=== PATIENT | female | born 1970 | race Caucasian/White ===

== ENCOUNTER → 2024-06-03 09:01 | Outpatient (CLI) | payer OTHER, MEDICAID, SELFPAY ==
--- NOTE | 2024-06-03 09:05 | DI.US.S_ITS ---
PROCEDURE: US THYROID INDICATIONS: THYROID NODULE TECHNIQUE: Real-time scanning was performed of the thyroid gland, with image documentation. COMPARISON: Outside Facility, US, US THYROID, 03/27/2023, 15:38. FINDINGS: Thyroid: Right lobe measures 5.5 x 1.6 x 2.2 cm. Left lobe measures 5.3 x 1.5 x 2.3 cm. Isthmus is 0.6 cm thick. Echotexture is heterogeneous. Nodule number: 1 Location: Right inferior Size: 1.1 x 0.9 x 0.7 cm compared to 1.1 x 0.8 x 0.7 cm. Composition: Solid Echogenicity: Hyperechoic Shape: wider than tall. Margins: Smooth Echogenic foci: None Total points: 3 ACR TI-RADS category: 3 Additional nodules are identified not meeting criteria for follow-up. IMPRESSION: Right lower lobe nodule now considered category 3 versus category 4 on prior exam due to appearance of increased echogenicity on current exam. Currently does not meet size criteria for follow-up. ACR TI-RADS definitions and recommendations: TI-RADS 1 (benign): 0 points. FNA not needed. TI-RADS 2 (not suspicious): 2 points. FNA not needed. TI-RADS 3: 3 points. * FNA if 2.5 cm or larger, follow up if 1.5 cm or larger (at 1, 3, and 5 years). TI-RADS 4: 4-6 points. * FNA if 1.5 cm or larger, follow up if 1 cm or larger (at 1, 2, 3, and 5 years). TI-RADS 5: 7 points or more. * FNA if 1 cm or larger, follow up if 0.5 cm or larger (every year for 5 years). Dictated by: Gabriela Valdez M.D. on 06/09/2024 at 9:58 Approved by: Gabriela Valdez M.D. on 06/09/2024 at 10:02
== END ==
PROVIDERS: PCP Family Medicine; Referring Provider Internal Medicine Endocrinology, Diabetes & Metabolism; Visit Provider Internal Medicine Endocrinology, Diabetes & Metabolism
DX: E04.1 Nontoxic single thyroid nodule (principal)
CPT/HCPCS: 76536

== ENCOUNTER → 2024-09-02 11:24 | Outpatient (CLI) | payer OTHER, SELFPAY ==
--- NOTE | 2024-09-02 11:31 | DI.RAD.S_ITS ---
PROCEDURE: XR HIP W PEL IF DONE RT 2V INDICATIONS: HIP PAIN. TECHNIQUE: AP pelvis with lateral view(s) of the right hip(s). COMPARISON: None. FINDINGS: Bones: No fractures or dislocations. Pelvic ring appears intact. No suspicious bony lesions. Soft tissues: The visualized bowel gas pattern is normal. No suspicious soft tissue calcifications. IMPRESSION: No acute bony abnormality. Dictated by: Bashir Candelaria M.D. on 09/02/2024 at 12:16 Approved by: Bashir Candelaria M.D. on 09/02/2024 at 12:16
[2024-09-02 12:57] LABS: Erythrocyte Sedimentation Rate 2 MM/HR (0-20)
[2024-09-02 13:03] LABS: C-Reactive Protein Quant 0.5 mg/dL (<1.0); Creatine Kinase 50 U/L (30-135)
[2024-09-02 13:33] LABS: Ferritin 26 ng/mL (11-264)
[2024-09-06 07:09] LABS: CRP, High Sensitivity 3.27 mg/L (0.00-3.00)
== END ==
PROVIDERS: PCP Family Medicine; Referring Provider Internal Medicine Rheumatology; Visit Provider Internal Medicine Rheumatology
DX: R25.2 Cramp and spasm (principal); M79.18 Myalgia, other site; M25.551 Pain in right hip
CPT/HCPCS: 36415; 73502; 82550; 82728; 85651; 86140